=== PATIENT | female | born 1935 | race Caucasian/White ===

== ENCOUNTER 2018-12-04 12:03 | Emergency (ER) | payer MEDICARE, OTHER ==
--- NOTE | 2018-12-04 12:19 | ED ---
Neurological HPI - HPI Summary HPI Summary: This pt is an 83 y/o female presenting to [facility] via EMS from Dr. Pate's office for left eye visual change yesterday. Pt reports around 12:30 yesterday pt was getting things ready on the table for lunch. She notes that as she was walking back and forth between the kitchen and dining table she began to see less and less from her left eye. Pt describes as a "curtain" moving from the top down in her left eye. This lasted a few minutes and resolved on its own. Denies weakness, numbness, tingling, chest pain, SOB. Currently reports her vision from her left eye is back to normal. She went to see her PCP today, Dr. Pate, and was referred to the ED for a possible TIA. Pt notes a similar episode occurred 3 years ago in the same left eye but states "there was something in the middle" of the left eye. Pt saw her credit union teller and was told she needed cataract surgery. She had cataract surgery and since then she didn't have any other visual changes until today. Pt did not see a neurologist then. PMHx includes artificial heart valve. Pt only takes aspirin. Denies any other anticoagulants. Pt reports recent fall about 5 weeks ago where she sustained a tail bone fracture. Her daughter is an concrete pump operator. - History of Current Complaint Stated Complaint: POSS TIA PER EMS Time Seen by Provider: 12/04/18 12:10 Hx Obtained From: Patient Onset/Duration: Started days ago - 1, Resolved Timing: Constant Onset Severity: Moderate Current Severity: None Pain Intensity: 0 Pain Scale Used: 0-10 Numeric Character: Visual Changes - left eye Aggravating: Nothing Alleviating: Spontanious Resolution Associated Signs and Symptoms: Positive: Visual Changes. Negative: Weakness, Numbness, Fever, Chest Pain, Shortness of Breath - Additional Pertinent History Primary Care Physician: [id number] - Allergy/Home Medications Allergies/Adverse Reactions: Allergies Allergy/AdvReac Type Severity Reaction Status Date / Time No Known Allergies Allergy Verified 01/06/16 08:58 Home Medications: Home Medications Alendronate (NF) [Fosamax (NF)] 70 mg PO WEEKLY 12/04/18 [History Confirmed 04/14] Aspirin EC TAB* [Ecotrin EC Low Dose 81 MG*] 81 mg PO DAILY 12/04/18 [History Confirmed 12/04/18] Atorvastatin* [Lipitor*] 20 mg PO DAILY 12/04/18 [History Confirmed 12/04/18] Levothyroxine TAB* [Synthroid TAB*] 75 mcg PO EVERY OTHER DAY 12/04/18 [History Confirmed 12/04/18] PMH/Surg Hx/FS Hx/Imm Hx Endocrine/Hematology History: Reports: Hx Thyroid Disease, Hx Anemia Denies: Hx Anticoagulant Therapy, Hx Blood Disorders, Hx Blood Transfusions, Hx Bone Marrow Disease, Hx Diabetes, Hx Systemic Lupus Erythematosus, Hx Sickle Cell Disease, Hx Unexplained Bleeding, Other Endocrine/Hematological Disorders Cardiovascular History: Reports: Hx Aneurysm - aorta, Hx Hypercholesterolemia, Hx Valvular Heart Disease Denies: Hx Angina, Hx Angioplasty, Hx Auto Implanted Cardiovert Defib, Hx Cardiac Arrest, Hx Cardiomegaly, Hx Congenital Heart Disease, Hx Congestive Heart Failure, Hx Coronary Artery Disease, Hx Deep Vein Thrombosis, Hx Embolism , Hx Hypotension, Hx Hypertension, Hx Pacemaker/ICD, Hx Peripheral Vascular Disease, Hx Rheumatic Fever, Hx Syncope, Other Cardiovascular Problems/Disorders Respiratory History: Denies: Hx Asthma, Hx Chronic Bronchitis, Hx Chronic Obstructive Pulmonary Disease (COPD), Hx Cystic Fibrosis, Hx Lung Cancer, Hx Pleural Effusion, Hx Pneumonia, Hx Pulmonary Edema, Hx Pulmonary Embolism, Hx Seasonal Allergies, Hx Sleep Apnea, Other Respiratory Problems/Disorders GI History: Reports: Hx Diverticulosis Denies: Hx Cirrhosis, Hx Crohn's Disease, Hx Gall Bladder Disease, Hx Gastroesophageal Reflux Disease, Hx Gastrointestinal Bleed, Hx Hiatal Hernia, Hx Irritable Bowel, Hx Jaundice, Hx Obstructive Bowel, Hx Ileostomy, Hx Pyloric Stenosis, Hx Ulcer, Other GI Disorders History: Denies: Hx Acute Renal Failure, Hx Benign Prostatic Hyperplasia, Hx Chronic Renal Failure, Hx Dialysis, Hx Kidney Infection, Hx Kidney Stones, Hx Renal Disease, Other Problems/Disorders Musculoskeletal History: Reports: Hx Arthritis, Hx Osteoporosis Denies: Hx Back Problems, Hx Bursitis, Hx Congenital Bone Abnormalities, Hx Fibromyalgia, Hx Gout, Hx Orthopedic Injury, Hx Scoliosis, Hx Tendonitis, Other Musculoskeletal History Sensory History: Reports: Hx Contacts or Glasses - reading Denies: Hx Cataracts, Hx Eye Injury, Hx Eye Prosthesis, Hx Glaucoma, Hx Legally Blind, Hx Macular Degeneration, Hx Vision Problem, Hx Deafness, Hx Hearing Aid, Hx Hearing Problem, Other Sensory Impairments Opthamlomology History: Reports: Hx Contacts or Glasses - reading Denies: Hx Cataracts, Hx Eye Injury, Hx Eye Prosthesis, Hx Glaucoma, Hx Legally Blind, Hx Macular Degeneration, Hx Vision Problem, Other Sensory Impairments Neurological History: Denies: Hx Headaches, Other Neuro Impairments/Disorders Psychiatric History: Denies: Hx Anxiety, Hx Attention Deficit Hyperactivity Disorder, Hx Eating Disorder, Hx Depression, Hx Panic Disorder, Hx Post Traumatic Stress Disorder, Hx Inpatient Treatment, Hx Community Mental Health Tx, Hx Schizophrenia, Hx Bipolar Disorder, Hx Suicide Attempt, Hx of Violent Episodes Against Others, Hx Substance Abuse, Other Psychiatric Issues/Disorders - Cancer History Cancer Type, Location and Year: Hx bladder CA Jul 2001 Hx Chemotherapy: No Hx Radiation Therapy: No Hx Palliative Cancer Treatment: No - Surgical History Surgery Procedure, Year, and Place: 06/10- AORTIC VALVE REPLACEMENT- [facility]. 08/26- BLADDER TUMOR REMOVED-[facility] [place]- DR JOE Souza Anesthesia Reactions: No Infectious Disease History: Denies: Hx Clostridium Difficile, Hx Hepatitis, Hx Human Immunodeficiency Virus (HIV), Hx of Known/Suspected MRSA, Hx Shingles, Hx Tuberculosis, Hx Known/ Suspected VRE, Hx Known/Suspected VRSA, History Other Infectious Disease - Family History Family History: Cancer - Social History Alcohol Use: Daily Alcohol Amount: 1 glass-wine Substance Use Type: Reports: None Smoking Status (MU): Former Smoker Type: Cigarettes Amount Used/How Often: 1/2 PPD X 35 YEARS Have You Smoked in the Last Year: No Review of Systems Negative: Fever Eyes: Other - POS: left eye visual disturbance Negative: Chest Pain Negative: Shortness Of Breath Gastrointestinal: Negative Negative: Weakness, Paresthesia, Numbness All Other Systems Reviewed And Are Negative: Yes Physical Exam - Summary Physical Exam Summary: VITAL SIGNS: Reviewed. GENERAL: Patient is a well-developed and nourished female who is lying comfortable in the stretcher. Patient is not in any acute respiratory distress. HEAD AND FACE: No signs of trauma. No ecchymosis, hematomas or skull depressions. No sinus tenderness. EYES: PERRLA, EOMI x 2, No injected conjunctiva, no nystagmus. No photophobia. EARS: Hearing grossly intact. Ear canals and tympanic membranes are within normal limits. MOUTH: Oropharynx within normal limits. NECK: Supple, trachea is midline, no adenopathy, no JVD, no carotid bruit, no c- spine tenderness, neck with full ROM. No meningeal signs, no Kernig's or brudzinskis signs. CHEST: Symmetric, no tenderness at palpation LUNGS: Clear to auscultation bilaterally. No wheezing or crackles. CVS: Regular rate and rhythm, S1 and S2 present, no murmurs or gallops appreciated. ABDOMEN: Soft, non-tender. No signs of distention. No rebound no guarding, and no masses palpated. Bowel sounds are normal. EXTREMITIES: FROM in all major joints, no edema, no cyanosis or clubbing. NEURO: Alert and oriented x 3. No acute neurological deficits. Speech is normal and follows commands. SKIN: Dry and warm. GCS: 15 Triage Information Reviewed: Yes Vital Signs Reviewed: Yes Diagnostics - Laboratory Result Diagrams: 12/04/18 12:44 12/04/18 12:44 Lab Statement: Any lab studies that have been ordered have been reviewed, and results considered in the medical decision making process. - Radiology Chest XR Radiology Interpretation Completed By: Radiologist Summary of Radiographic Findings: IMPRESSION: No active cardiopulmonary disease is noted. Dr. Beckwith has reviewed this report. - CT Brain CT CT Interpretation Completed By: Radiologist Summary of CT Findings: IMPRESSION: No acute intracranial pathology. Dr. Beckwith has reviewed this report. - Ultrasound No standard instances Ultrasound Interpretation Completed By: Radiologist Summary of Ultrasound Findings: Carotid Bilateral US IMPRESSION: Less than 50% stenosis of both internal carotid arteries with normal-appearing velocities. Dr. Beckwith has reviewed this report. - EKG 12:53 Cardiac Rate: NL - at 63 bpm EKG Rhythm: Sinus Rhythm Summary of EKG Findings: Left bundle branch block. NIH Scale - NIH Scale Level of Consciousness: Alert/Keenly Responsive Ask Patient the Month and His/Her Age: Both Correct Ask Pt to Open/Close Eyes and Edging Machine Feeder/Release Non-Paretic Hand: Both Correctly Best Gaze (Only Horizontal Eye Movement): Normal Visual Field Testing: No Visual Loss Facial Paresis-Pt to Smile & Close Eyes or Grimace Symmetry: Normal/Symmetrical Motor Function - Right Arm: No Drift-Holds 10 Seconds Motor Function - Left Arm: No Drift-Holds 10 Seconds Motor Function - Right Leg: No Drift-Holds 10 Seconds Motor Function - Left Leg: No Drift-Holds 10 Seconds Limb Ataxia-Must be out of Proportion to Weakness Present: Absent Sensory (Use Pinprick to Test Arms/Legs/Trunk/Face): Normal Best Language (Describe Picture, Name Items): No Aphasia Dysarthria (Read Several Words): Normal Extinction and Inattention: No Abnormality Total Score: 0 Re-Evaluation - Re-Evaluation First Eval Re-Evaluation Time: 17:16 Comment: Reviewed the results with the pt. She will be discharged home. Course/Dx - Course Assessment/Plan: This pt is an 83 y/o female presenting to [facility] via EMS from Dr. Pate's office for left eye visual change yesterday. Pt reports around 12: 30 yesterday pt was getting this ready on the table for lunch. She notes that as she was walking back and forth between the kitchen and dining table she began to see less and less from her left eye. Pt describes as a "curtain" moving from the top down in her left eye. Denies weakness, numbness, tingling, chest pain, SOB. She went to see her PCP today, Dr. Pate, and was referred to the ED for a possible TIA. Pt notes a similar episode occurred 3 years ago in the same left eye but states "there was something in the middle" of the eye. Pt saw her credit union teller and was told she needed cataract surgery. She had cataract surgery and since then she didn't have any other visual disturbance until today. Pt did not see a neurologist then. PMHx includes artificial heart valve. Pt only takes aspirin. Denies any other anticoagulants. Pt reports recent fall about 5 weeks ago where she sustained a tailbone fracture. Her daughter is an concrete pump operator. Blood test results without any significant abnormality except for creatinine 1.02. Troponin 0.00. Urinalysis is negative for UTI. Head CT impression: No acute intracranial pathology. Chest x-ray impression: No active cardiopulmonary disease. Dr. Barker from neurology consulted for the patient and he requested a carotid Doppler. Patient was given an aspirin. Carotid Doppler U/S IMPRESSION: Less than 50% stenosis of both internal carotid arteries with normal-appearing velocities. Discussed the case with Dr. Barker again and he recommends for the patient to be discharged home, continue taking aspirin and follow-up with him in 2 weeks. I discussed all the findings and test results with the patient. Patient was instructed to return to the emergency room immediately if any of the symptoms return or worsen. Plan of care was discussed with the patient and she understands and agrees. All questions were answered at patient satisfaction. There were no further complaints or concerns. Lung exam before discharge: CTA B/L. Good air exchange. No wheezing or crackles heard. CVS: S1 and S2 present. No murmurs appreciated. Patient is alert and oriented x 3. Patient is hemodynamically stable. Patient will be discharged home with follow up from her PCP in the next 2-[address] Barker in 2 weeks. - Diagnoses Provider Diagnoses: TIA (transient ischemic attack) - Physician Notifications Discussed Care Of Patient With: Dionicio Barker Time Discussed With Above Provider: 14:50 Instructed by Provider To: Other - Discussed the case with Dr. Barker, neurologist, who recommends a carotid US and aspirin. [17:04] Reviewed carotid US results with Dr. Barker, neurologist, who recommends discharging pt home and follow up in his office in 2 weeks. Discharge - Sign-Out/Discharge Documenting (check all that apply): Patient Departure - Discharge home Patient Received Moderate/Deep Sedation with Procedure: No - Discharge Plan Condition: Stable Disposition: HOME Patient Education Materials: Transient Ischemic Attack (ED) Referrals: Dionicio Barker MD [Medical Doctor] - Hanna Pate MD [Primary Care Provider] - Additional Instructions: Follow up with Dr. Barker, neurologist, in 2 weeks. PLEASE FOLLOW UP WITH YOUR PRIMARY CARE PROVIDER IN 2-3 DAYS. RETURN TO THE ED FOR ANY WORSENING OR NEW SYMPTOMS. - Billing Disposition and Condition Condition: STABLE Disposition: Home - Attestation Statements Document Initiated by Elvia: Yes Documenting Scribe: Lavinia Zeng Provider For Whom Elvia is Documenting (Include Credential): Moshe Beckwith MD Scribe Attestation: Lavinia Amin, joanibed for Moshe Beckwith MD on 12/05/18 at 1026. Scribe Documentation Reviewed: Yes Provider Attestation: The documentation as recorded by the Lavinia trejo accurately reflects the service I personally performed and the decisions made by me, Moshe Beckwith MD Status of Scribe Document: Viewed
[2018-12-04 13:09] LABS: Hematocrit 39 % (35-47); Hemoglobin 13.2 g/dL (12.0-16.0); Mean Corpuscular HGB Conc 34 g/dL (31-36); Mean Corpuscular Hemoglobin 31 pg (27-31); Mean Corpuscular Volume 92 fL (80-97); Platelet Count 205 10^3/uL (150-450); Red Blood Count 4.25 10^6 /uL (3.70-4.87); Red Cell Distribution Width 15 % (10-15); White Blood Count 5.4 10^3/uL (3.5-10.8)
[2018-12-04 13:13] LABS: ABS Basophils 0.1 10^3/ul (0-0.2); ABS Eosinophils 0.3 10^3/ul (0-0.6); ABS Lymphocytes 1.1 10^3/ul (1.0-4.8); ABS Monocytes 0.6 10^3/ul (0-0.8); ABS Neutrophils 3.3 10^3/ul (1.5-7.7); Eosinophil % 5.4 %; Lymphocyte % 20.5 %; Nucleated Red Blood Cells % 0.3
[2018-12-04 13:22] LABS: Albumin 4.3 g/dL (3.2-5.2); Albumin/Globulin Ratio 1.9 (1-3); BUN/Creatinine Ratio 18.6 (8-20); Calcium 9.9 mg/dL (8.6-10.3); EGFR African American 62.8 (>60); EGFR Non-African American 51.9 (>60); Globulin 2.3 g/dL (2-4); HDL Cholesterol 94.3 mg/dL; Potassium 4.3 mmol/L (3.5-5.0); Total Protein 6.6 g/dL (6.4-8.9)
[2018-12-04 13:23] LABS: Activated Partial Thrombo Time 31.8 seconds (26.0-38.0); INR 0.97 (0.82-1.09)
[2018-12-04 14:15] LABS: Urine Appearance Cloudy; Urine Bacteria Absent (Absent); Urine Bilirubin Negative (Negative); Urine Blood Negative (Negative); Urine Color Yellow; Urine Glucose Negative (Negative); Urine Ketones Negative (Negative); Urine Nitrite Negative (Negative); Urine Protein 1+(30 mg/dL) (Negative); Urine Red Blood Cell Absent (Absent); Urine Specific Gravity 1.013 (1.010-1.030); Urine Urobilinogen Negative (Negative); Urine White Blood Cell Trace(0-5/hpf) (Absent)
[2018-12-04] MEDS ORDERED: Aspirin 81 mg CHEW TAB* 81 MG TAB.CHEW PO ONE (14:30)
[2018-12-04] MEDS ORDERED: Atorvastatin* 20 MG TAB PO SCH (17:00)
--- NOTE | 2018-12-04 17:22 | CONS ---
CC: Dr. Pate * NEUROLOGY CONSULTATION NOTE: DATE OF CONSULT: 12/04/18 - EMERGENCY DEPT CONSULTING PROVIDER: Dr. Beckwith. REASON FOR CONSULT: Evaluate for TIA. CHIEF COMPLAINT: Transient left vision loss. HISTORY OF PRESENT ILLNESS: Mrs. Lawrence is an 83-year-old right-handed female who presents to [facility] Emergency Department with a sudden onset of left-sided visual loss. This took place yesterday on 12/03/18 at 12:30 p.m. She felt a black curtain that went from top and descended all the way down covering her entire left eye. It was dark. This lasted for 5 minutes. Then gradually, she had an ascending sensation where the vision slowly came back to its normal function. She had a similar episode 3 years ago. The patient stated that she missed her aspirin dose on Tuesday and Tuesday and quickly took the aspirin Tuesday after the onset of the symptoms. She denied any headaches, other visual disturbance like double vision or blurry vision, swallowing difficulty, chest pain, shortness of breath, focal weakness or paresthesias. Currently, the patient is asymptomatic. She saw her primary care doctor, Dr. Pate and was evaluated by the nurse practitioner and subsequently referred to the hospital for further evaluation. PAST MEDICAL HISTORY: Artificial heart valve, is only on aspirin. She had a reported fall 5 weeks ago and fractured her tailbone. Diverticulosis, history of aortic aneurysm, dyslipidemia, thyroid disease, anemia, cataracts, arthritis , and osteoporosis. PAST SURGICAL HISTORY: Aortic valve replacement in [facility], bladder tumor removal. MEDICATIONS: 1. Atorvastatin 10 mg daily. 2. Elkin 1 tablet by mouth every 6 hours as needed. 3. Calcium 1 tablet by mouth daily. 4. Aspirin 81 mg 1 tablet by mouth in the morning. 5. Potassium chloride 20 mEq 1 packet by mouth daily. 6. Levothyroxine 50 mcg every other day. 7. Amoxicillin 1 cap by mouth daily as needed for dental procedures. 8. Acetaminophen 325 mg p.o. every 4 hours as needed. 9. Levothyroxine 75 mcg p.o. every other day. ALLERGIES: No known drug allergies. FAMILY HISTORY: She denied any family history of stroke or seizures. She has a strong history of cancer. SOCIAL HISTORY: The patient is a former smoker, she smoked for 4 years, averaging half a pack per day. She drinks a glass of wine occasionally. REVIEW OF SYSTEMS: A 14-point review of systems was obtained and otherwise negative except for what was mentioned in the HPI. PHYSICAL EXAM: Vitals: Temperature 97.9, pulse is 74, respiratory rate of 19, oxygen saturation of 99%, and blood pressure of 148/93. General: Well- nourished, well-developed female in no acute distress. Head: Normocephalic, atraumatic without any obvious abnormality. Eyes: Conjunctivae/corneas are clear. Undilated funduscopic examination did not reveal any blurring of disc margin. Neck is supple and symmetrical. There is a holosystolic murmur radiating to the carotids. It is difficult to assess if this is a bruit, but it is present in both carotids. No lymphadenopathy. Lungs are clear to auscultation bilaterally. Cardiovascular: Regular rate and rhythm with normal S1, S2. There is a 3/4 holosystolic murmur radiating to the carotids bilaterally. Skin: No skin lesions or laceration. Psych: Affect is broad and normal mood. Easy to establish rapport. Neurological Examination: Mental Status: Awake, alert, oriented to person, place, and time, and general circumstances. Speech and language including expression, naming, repetition, comprehension were assessed and found to be normal. Cranial Nerves: Normal confrontation testing bilaterally. Pupils are mid range and reactive to light. Normal consensual response. Sensation is intact on the forehead, cheeks, and jaw region bilaterally. There is no facial droop. She is able to hear throughout the history process. Symmetrical palatal elevation. There is normal strength against shoulder resistance. Tongue is symmetrical and midline with no atrophy or fasciculation. Motor Examination: No abnormal movements or pronator drift. Normal bulk and tone throughout. 5/5 strength in the upper and lower extremities proximally and distally. Reflexes: Brachioradialis, biceps, triceps, patella, ankle are 1+ throughout. Plantar flexor/flexor responses. Sensation is intact to light touch throughout. Coordination: Normal [id number] and heel-to- singh testing. Gait and station narrow based, no ataxia. ABCD2 score is 2, which suggests a low risk for stroke and 90 day stroke risk is 3.1%. NIH stroke scale is 0. DIAGNOSTIC STUDIES/LAB DATA: Laboratory finding: WBC 5.4, hemoglobin 13.2, hematocrit 39, platelet count of 205,000. INR is 0.97. Sodium is 138, potassium 4.3, BUN of 19, creatinine of 1.02. Total cholesterol is 217, LDL 108 , HDL is 94. Urinalysis shows no pyuria. CT head without contrast was obtained and reviewed and there is no evidence of intracranial abnormalities. ASSESSMENT AND RECOMMENDATIONS: Mrs. Antonino Lawrence is an 83-year-old female with history a history of aortic bioprosthetic valve, who is not on anticoagulation therapy, who has missed her aspirin therapy for approximately 48 hours, who presented with sudden onset of a transient episode of visual loss in the left eye. 1. Most likely amaurosis fugax in the absence of antiplatelet therapy. The patient's ABCD score is low suggesting that her 90 day stroke risk is about 3%. I recommend obtaining a carotid ultrasound to evaluate for severe carotid disease. If she has 50% or less carotid stenosis, I recommend continuing her on aspirin therapy, which I will increase to 325 mg daily for the next 30 days. There is no need for dual- antiplatelet therapy in this case given that she missed a few doses of the aspirin therapy and she is very frail and at risk of complications with dual-antiplatelet therapy. If there is greater than 50% stenosis, especially in the left ICA, then referring her to a vascular surgeon and placing her on dual-antiplatelet therapy is recommended. She can have a transthoracic echo with bubble study done as an outpatient as the patient has stated that she would not like to be admitted to the hospital at this time. I think that is a reasonable option if the carotid ultrasound does not show any critical stenosis. I will be more than happy to follow up with the patient in 2 -3 weeks. I educated the patient and counseled her regarding primary stroke prevention. She should also double the dose of atorvastatin given the slightly elevated LDL, although she has an excellent HDL level. No need for PT/OT/PATTERN HAND evaluation and treatment given that she is asymptomatic. No need for IV tPA or mechanical thrombectomy given she is outside the window and she does not have any deficits at this time. The treatment plan was discussed with Dr. Beckwith and the patient. The patient verbalized understanding. I anticipate discharge tonshady. [id number]/[facility] #: [id number] [facility]
[2018-12-04 17:49] VITALS: BP 137/71
== END 2018-12-04 17:49 | disposition home or self-care (01) ==
LOC: ED 12:03
DX: G45.9 Transient cerebral ischemic attack, unspecified (principal); E07.9 Disorder of thyroid, unspecified; D64.9 Anemia, unspecified; I38 Endocarditis, valve unspecified; Z79.899 Other long term (current) drug therapy; Z87.891 Personal history of nicotine dependence
CPT/HCPCS: 36415; 70450; 71046; 80053; 80061; 81003; 81015; 83605; 84484; 85025; 85610; 85730; 86850; 86900; 86901; 87086; 93005; 93880; 99285; A9270-GY

== ENCOUNTER 2021-03-06 19:38 | Inpatient (IN) ==
[2021-03-06 20:46] LABS: ABS Basophils 0.1 10^3/ul (0-0.2); ABS Eosinophils 0.4 10^3/ul (0-0.6); ABS Lymphocytes 1.2 10^3/ul (1.0-4.8); ABS Monocytes 0.7 10^3/ul (0-0.8); Eosinophil % 6.4 %; Hematocrit 33 % (35-47); Hemoglobin 11.1 g/dL (12.0-16.0); Lymphocyte % 18.7 %; Mean Corpuscular HGB Conc 34 g/dL (31-36); Mean Corpuscular Hemoglobin 29 pg (27-31); Mean Corpuscular Volume 86 fL (80-97); Mean Platelet Volume 8.5 fL (7.4-10.4); Nucleated Red Blood Cells % 0.1; Platelet Count 206 10^3/uL (150-450); Red Cell Distribution Width 16 % (10-15); White Blood Count 6.3 10^3/uL (3.5-10.8)
[2021-03-06 20:52] LABS: INR 1.03 (0.86-1.15)
[2021-03-06 21:04] LABS: Troponin I 0.01 ng/mL (<0.03)
[2021-03-06 21:12] LABS: Albumin/Globulin Ratio 1.7 (1-3); Calcium 9.5 mg/dL (8.6-10.3); EGFR African American 70.2 (>60); Globulin 2.3 g/dL (2-4); Potassium 4.8 mmol/L (3.5-5.0); Total Bilirubin 0.6 mg/dL (0.2-1.0); Total Protein 6.3 g/dL (6.4-8.9)
[2021-03-06] MEDS ORDERED: Iodixanol (CONTRAST) 320 MG/ML 100 ML SDV IV ONE (22:55)
[2021-03-07] MEDS: Enoxaparin 40 MG/0.4 ML SYR SUBCUT SCH ×2 (01:35→20:33)
[2021-03-07 03:00] LABS: ABS Basophils 0.1 10^3/ul (0-0.2); ABS Eosinophils 0.3 10^3/ul (0-0.6); ABS Lymphocytes 1.3 10^3/ul (1.0-4.8); ABS Monocytes 0.5 10^3/ul (0-0.8); ABS Neutrophils 3.4 10^3/ul (1.5-7.7); Eosinophil % 5.6 %; Hematocrit 31 % (35-47); Hemoglobin 10.9 g/dL (12.0-16.0); Lymphocyte % 23.4 %; Mean Corpuscular HGB Conc 35 g/dL (31-36); Mean Corpuscular Hemoglobin 30 pg (27-31); Mean Corpuscular Volume 86 fL (80-97); Mean Platelet Volume 8.7 fL (7.4-10.4); Platelet Count 187 10^3/uL (150-450); Red Cell Distribution Width 16 % (10-15); White Blood Count 5.6 10^3/uL (3.5-10.8)
[2021-03-07 03:12] LABS: Anion Gap 5 mmol/L (2-11); Blood Urea Nitrogen 15 mg/dL (6-24); CO2 Carbon Dioxide 27 mmol/L (22-32); Calcium 9.4 mg/dL (8.6-10.3); Chloride 102 mmol/L (101-111); EGFR African American 73.9 (>60); EGFR Non-African American 61.1 (>60); Glucose 98 mg/dL (70-100); Potassium 4.1 mmol/L (3.5-5.0); Sodium 134 mmol/L (135-145)
[2021-03-07 03:14] LABS: Troponin I 0.01 ng/mL (<0.03)
[2021-03-07] MEDS ORDERED: Morphine 2 MG/ML SYRINGE IV ONE (09:39)
[2021-03-07] MEDS: Aspirin EC 81 mg TAB.EC (enteric coated) PO SCH (09:49)
[2021-03-08] MEDS: Aspirin EC 81 mg TAB.EC (enteric coated) PO SCH (09:07)
[2021-03-08 09:08] LABS: % Iron Saturation 11 % (15-55); Iron 46 ug/dL (50-212); Total Iron Binding Capacity 427 mcg/dL (250-450); Transferrin 305 mg/dL (203-362); Unsaturated Iron Binding < 412 ug/dL
[2021-03-08 09:35] LABS: Folate > 20.00 ng/mL (5.90-24.80)
[2021-03-08 09:36] LABS: Vitamin B12 323 pg/mL (180-914)
[2021-03-08] MEDS: Enoxaparin 40 MG/0.4 ML SYR SUBCUT SCH (20:57)
[2021-03-09] MEDS: Aspirin EC 81 mg TAB.EC (enteric coated) PO SCH (12:27)
[2021-03-09 12:40] VITALS: BP 131/36
[2021-03-09] MEDS ORDERED: Regadenoson 0.4 MG/5 ML SYRINGE ONE (12:46)
== END 2021-03-09 15:05 | disposition home or self-care (01) | DRG 313 ==
LOC: ED 19:38 → MEDTELE 19:38
PROVIDERS: ADMIT Hospitalist; ATTEND Hospitalist